=== PATIENT | male | born 1985 | race Two or more races ===

== ENCOUNTER 2020-10-26 01:15 | Emergency (ER) | payer MEDICAID, OTHER ==
[~2020-10-26] VITALS: Ht 175.3 cm; Wt 68.0 kg
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
--- NOTE | 2020-10-26 02:00 | NUR ---
PATIENT TAKEN TO CT
[2020-10-26] MEDS ORDERED: LIDOCAINE 1%-EPI 1:100,000 20 ML VIAL ONE (02:45)
--- NOTE | 2020-10-26 03:39 | NUR ---
Patient discharged to home in stable condition. Written and verbal after care instructions given. Patient verbalizes understanding of instruction.
[2020-10-26 03:40] VITALS: BP 144/75
== END 2020-10-26 03:40 | disposition home or self-care (01) ==
LOC: ER 01:18
DX: S01.112A Laceration without foreign body of left eyelid and periocular area, initial encounter (principal); S01.21XA Laceration without foreign body of nose, initial encounter; Y08.89XA Assault by other specified means, initial encounter; Y93.89 Activity, other specified; Y92.89 Other specified places as the place of occurrence of the external cause; Y99.8 Other external cause status
CPT/HCPCS: 12013; 99283; J3490

== ENCOUNTER 2020-10-31 20:08 | Emergency (ER) | payer MEDICAID ==
[~2020-10-31] VITALS: Ht 175.3 cm; Wt 68.0 kg
[2020-10-31 20:30] VITALS: BP 124/76
== END 2020-10-31 21:05 | disposition home or self-care (01) ==
LOC: ER 20:08
DX: S01.81XD Laceration without foreign body of other part of head, subsequent encounter (principal); S01.21XD Laceration without foreign body of nose, subsequent encounter; Y08.89XD Assault by other specified means, subsequent encounter